=== PATIENT | female | born 1990 | race Caucasian/White ===

== ENCOUNTER 2019-12-03 22:50 | Emergency (ER) | payer OTHER ==
[2019-12-03] MEDS ORDERED: Bacitracin Oint 1 GM U/D Packet TOP ONE (23:18)
--- NOTE | 2019-12-03 23:23 | EDM.PDOC ---
ED HPI GENERAL MEDICAL PROBLEM - General Chief Complaint: Laceration Stated Complaint: head laceration Time Seen by Provider: 12/03/19 23:05 Source of Information: Reports: Patient History Limitations: Reports: No Limitations - History of Present Illness INITIAL COMMENTS - FREE TEXT/NARRATIVE: Patient comes to ER with laceration on top of her head due to her hitting it on the ceiling while going down some stairs. No fall. No loc. No other complaints. Denies dizziness/facial pain/neck pain/other pain complaints. No vision change. Is intoxicated. Head Pain Score (Numeric/FACES): 6 - Related Data Allergies Allergy/AdvReac Type Severity Reaction Status Date / Time No Known Allergies Allergy Verified 12/03/19 22:56 Home Meds: Home Meds Multivit,Calc,Mins/Iron/Folic [Sm Women's One Daily Tablet] 1 each PO DAILY [History] buPROPion HCL [Bupropion Xl] 300 mg PO DAILY 12/03/19 [History] Past Medical History Psychiatric History: Reports: Anxiety, Depression Social & Family History - Tobacco Use Smoking Status *Q: Never Smoker - Alcohol Use Alcohol Use History: Yes Alcohol Use Frequency: Socially (Does not report frequent use of ETOH) - Recreational Drug Use Recreational Drug Use: No ED ROS GENERAL - Review of Systems Review Of Systems: Comprehensive ROS is negative, except as noted in HPI. ED EXAM, SKIN/RASH Exam: See Below Exam Limited By: No Limitations General Appearance: Alert, WD/WN, Anxious Eye Exam: Bilateral Eye: EOMI, PERRL Ears: Normal External Exam, Normal Canal, Hearing Grossly Normal Nose: Normal Inspection Throat/Mouth: Normal Inspection, Normal Lips, Normal Voice, No Airway Compromise Head: Atraumatic, Normocephalic Neck: Supple, Non-Tender, Full Range of Motion. No: Tender Lateral, Tender Midline Respiratory/Chest: No Respiratory Distress Back Exam: Normal Inspection Extremities: Normal Inspection, Normal Range of Motion, Normal Capillary Refill Neurological: Alert, Oriented, Normal Cognition, Normal Gait, No Motor/Sensory Deficits, Other (intoxicated) Psychiatric: Anxious Skin: Warm, Dry, Other (laceration top of head) ED SKIN PROCEDURES - Laceration/Wound Repair [place] Head Appearance: Subcutaneous, Linear, Clean Skin Prep: Chlorhexidine (Hibiciens) Exploration/Debridement/Repair: Wound Explored, In a Bloodless Field, Explored to Base, No Foreign Material Found Closed with: Ciarra Lac/Wound length In cm: 2 # of Sutures: 3 Sterile Dressing Applied: None Tetanus Status Addressed: Yes Complications: No Course - Vital Signs Last Recorded V/S: Last Vital Signs Temp 37.3 C 12/03/19 22:51 Pulse 90 12/03/19 22:51 Resp 16 12/03/19 22:51 BP 105/75 12/03/19 22:51 Pulse Ox 100 12/03/19 22:51 - Orders/Labs/Meds Labs: Laboratory Tests 12/03/19 12/03/19 Range/Units 22:58 22:58 WBC 8.8 (4.0-10.2) K/uL RBC 3.91 (3.77-5.09) M/uL Hgb 12.2 (11.7-15.5) g/dL Hct 36.8 (34.0-46.0) % MCV 94.1 (84.0-98.0) fL MCH 31.2 (28.2-33.3) pg MCHC 33.2 (31.7-36.0) g/dL RDW 11.8 (11.2-14.1) % Plt Count 224 (150-350) K/uL Neut % (Auto) 51.1 (45.0-80.0) % Lymph % (Auto) 38.6 (10.0-50.0) % Saunders % (Auto) 8.7 (2.0-14.0) % Eos % (Auto) 1.1 (0.0-5.0) % Baso % (Auto) 0.5 (0.0-2.0) % Neut # (Auto) 4.50 (1.40-7.00) K/uL Lymph # (Auto) 3.40 (0.50-3.50) K/uL Saunders # (Auto) 0.77 (0.00-1.00) K/uL Eos # (Auto) 0.10 (0.00-0.50) K/uL Baso # (Auto) 0.04 (0.00-0.20) K/uL Ethyl Alcohol 0.130 H (0.000-0.080) g/dL - Re-Assessments/Exams Free Text/Narrative Re-Assessment/Exam: 12/03/19 23:24 Patient reports tetanus is UTD. Laceration repaired. ETOH 0.13 Normal CBC Wound care reviewed. [place] out in 7 days/next Friday. Follow up otherwise as needed. Departure - Departure Time of Disposition: 23:25 Disposition: Home, Self-Care 01 Condition: Good Clinical Impression: Alcohol use Laceration of head Qualifiers: Encounter type: initial encounter Location of open wound of head: scalp Foreign body presence: without foreign body Qualified Code(s): S01.01XA - Laceration without foreign body of scalp, initial encounter - Discharge Information *PRESCRIPTION DRUG MONITORING PROGRAM REVIEWED*: Not Applicable *COPY OF PRESCRIPTION DRUG MONITORING REPORT IN PATIENT DAHLIA: Not Applicable Instructions: Sutures, [place], or Adhesive Wound Closure, [id number] Referrals: PCP,Unknown [Primary Care Provider] - Additional Instructions: Wound care as discussed/follow written instructions. Ciarra out next Friday. They will be taken out for free by our clinic but call and find out when is a good time to stop by. Follow up otherwise as needed if you have acute worsening problems or concerns such as infection. NO DRIVING tonight. Your alcohol level is .13 Drink water/stay hydrated. Sepsis Event Note - Evaluation Sepsis Screening Result: No Definite Risk - Focused Exam Vital Signs: Vital Signs Temp Pulse Resp BP Pulse Ox 12/03/19 22:51 37.3 C 90 16 105/75 100 Date Exam was Performed: 12/03/19 Time Exam was Performed: 23:17
== END 2019-12-03 23:55 | disposition home or self-care (01) ==
LOC: LL.ED 22:50
DX: S01.01XA Laceration without foreign body of scalp, initial encounter (principal); F10.129 Alcohol abuse with intoxication, unspecified; Y90.0 Blood alcohol level of less than 20 mg/100 ml; F41.9 Anxiety disorder, unspecified; F32.9 Major depressive disorder, single episode, unspecified; Z79.899 Other long term (current) drug therapy; W22.8XXA Striking against or struck by other objects, initial encounter
CPT/HCPCS: 12001; 36415; 80307; 85025; 99283-25